=== PATIENT | female | born 1955 | race Caucasian/White ===

== ENCOUNTER 2024-09-18 22:43 | Emergency (ER) | payer MEDICARE, SELFPAY ==
[2024-09-18 22:45] VITALS: BP 159/83; PULSE 76; RESP 16; TEMP 37.1; O2SAT 95; BMI 31.9
[2024-09-18 22:54] VITALS: PULSE 69; RESP 18; O2SAT 97
--- NOTE | 2024-09-18 22:58 | EKG12_ITS ---
Test Reason : DYSRHYTHMIA Blood Pressure : */* mmHG Vent. Rate : 70 BPM Atrial Rate : 70 BPM P-R Int : 168 ms QRS Dur : 86 ms QT Int : 386 ms P-R-T Axes : 53 33 35 degrees QTcB Int : 416 ms Normal sinus rhythm Normal ECG Confirmed by OMAIRA KENNEDY, MIREILLE ([id number]), fashion editor EBONY ALVAREZ ([id number]) on 09/23/2024 6:54:53 AM Referred By: TB Confirmed By: MIREILLE CASTANO MD
--- NOTE | 2024-09-18 22:58 | EX.ED.DYSGE1 ---
HPI History of Present Illness Chief Complaint: Chest Pain Narrative Narrative: Patient is a 69-year-old female with past medical history of hypertension, GERD, CVA on 325 of aspirin, bipolar 1 disorder who presented to the emergency department chief complaint chest pain. Patient states that her chest pain has been going on for approximately 3 hours now and states that is completely resolved at this point in time by the time she arrived in the emergency department. Patient states that this all started while typing earlier this evening. Patient notes that the pain was in the left side of her chest radiated to her shoulder blades. Patient did note that she recently traveled to [place] as well and she drove however she states that she took multiple breaks. [facility] Medical History Fractures Elevated liver enzymes Elevated cholesterol Posterior vitreous detachment of right eye Carpal tunnel syndrome ADHD GERD (gastroesophageal reflux disease) HTN (hypertension) TIA (transient ischemic attack) CVA (cerebral vascular accident) Insomnia Bipolar 1 disorder Home Medications ?Medication ?Instructions ?Recorded ?Last Taken ?Type amlodipine 2.5 mg tablet 2.5 mg PO QDAY 01/28/24 Unknown History aspirin 325 mg tablet 325 mg PO QDAY 01/28/24 Unknown History atenolol 25 mg tablet 25 mg PO QDAY 01/28/24 Unknown History docusate sodium 100 mg capsule 100 mg PO QDAY 01/28/24 Unknown History (Colace) meloxicam 7.5 mg tablet 7.5 mg PO QDAY 01/28/24 Unknown History pantoprazole 40 mg tablet,delayed 40 mg PO QDAY 01/28/24 Unknown History release alprazolam 2 mg tablet 2 mg PO QDAY 90 days #90 tabs 06/26/24 Unknown Rx bupropion HCl 100 mg tablet,12 hr 100 mg PO BID 90 days #180 ea 06/26/24 Unknown Rx sustained-release lamotrigine 150 mg tablet 300 mg (2 x 150 mg) PO QHS 90 days 06/26/24 Unknown Rx #180 tabs thioridazine 25 mg tablet 25 mg PO QHS #90 tabs 06/26/24 Unknown Rx Allergy/AdvReac Type Severity Reaction Status Date / Time Iodinated Contrast Media Allergy Severe Swelling Verified 09/18/24 22:44 (IVP dye) Family History Other CAD (coronary artery disease) COPD (chronic obstructive pulmonary disease) Cancer Diabetes Heart disease Kidney disease Thyroid disorder Surgical History History of cholecystectomy History of appendectomy History of tonsillectomy Social History Smoking Status: Former smoker alcohol intake: current alcohol intake frequency: holidays/special occasions only substance use type: does not use ROS ROS ED ROS Narrative Constitutional: Denies headache, fevers or chills Eyes: Denies change of double vision blurry vision Cardiovascular: Complains of chest pain as noted above denies palpitations Respiratory: Denies coughing wheezing shortness of breath Abdomen: Denies abdominal pain nausea vomit diarrhea : Denies urinary symptoms Neurological: Denies numbness, weakness, tingling Musculoskeletal: Complaint of back pain as noted above states that is since resolved Skin: Denies any rashes or lesions EXAM Physical Exam Narrative Exam Narrative: General: Patient lying in bed rest comfortably did not appear to be in acute distress Head: Atraumatic, normocephalic Eyes: PERRL bilaterally, EOMI by, no conjunctival injection noted Neck: Soft, supple, trachea midline Cardiovascular: Regular rate and rhythm no murmurs gallops rubs noted Respiratory: Clear to auscultation bilaterally Abdomen: Soft, nondistended, nontender to palpation Extremities: Radial pulses +2/4 in bilateral extremities, +5/5 strength noted in the bilateral upper and lower extremities Neurological: Patient following commands knew that she was at [facility] the year is 2024 Skin: Warm, dry, intact no rashes or lesions noted Const Vital Signs: 09/18/24 22:45 09/18/24 22:54 09/18/24 22:59 Temperature 98.7 F Temperature Source Oral Pulse Rate 76 69 Respiratory Rate 16 18 Blood Pressure 159/83 H Blood Pressure Mean 108 Pulse Ox 95 97 Oxygen Delivery Method Room Air Room Air 09/18/24 23:00 09/18/24 23:00 09/18/24 23:15 Temperature Temperature Source Pulse Rate 70 Respiratory Rate 17 Blood Pressure 155/78 H 155/78 H 169/93 H Blood Pressure Mean 100 100 116 Pulse Ox 96 98 Oxygen Delivery Method 09/18/24 23:30 09/18/24 23:45 09/19/24 00:00 Temperature Temperature Source Pulse Rate 64 66 67 Respiratory Rate 15 16 24 H Blood Pressure Blood Pressure Mean Pulse Ox 98 99 96 Oxygen Delivery Method 09/19/24 01:00 09/19/24 02:00 Temperature Temperature Source Pulse Rate 54 L 61 Respiratory Rate 22 H 16 Blood Pressure 121/66 H 131/67 H Blood Pressure Mean 84 88 Pulse Ox 96 96 Oxygen Delivery Method Room Air Room Air MDM MDM MDM Narrative Medical decision making narrative: Patient is a 69-year-old female who presented to the emergency department with chief complaint of chest pain. On the differential diagnose includes but not limited to ACS, pneumonia, pneumothorax, PE however have low suspicion for this given normal heart rate, no shortness of breath and she took several breaks during her travels, dissection. Once workup is obtained reviewed she will be reevaluated. Patient already takes 325 mg aspirin daily. Patient CBC was reviewed showed no evidence leukocytosis white blood count normal 7.7, he was 12.8, platelet count noted to be 355. Patient sodium normal 140, potassium normal 4, creatinine was 1.07. Patient troponin was 6 with a delta troponin obtained at 7. Patient's EKG was reviewed which showed sinus rhythm with a rate of 70 bpm. Showed a left lower lobe retrocardiac opacity not entirely excluded however that she does not have any respiratory symptoms associated with this therefore I have low suspicion for pneumonia or any other upper respiratory type of etiology at this point in time. At this point patient is feeling much better and states I do not even know why I am here. She states that she would like to go home at this point time. She is advised to keep blood pressure log and take that to her schedule appointment that is coming up in the near future she states. She should return with worsening symptoms or concerns. She is agreeable to plan all question concerns answered she is discharged home in stable condition. Lab Data Labs: Laboratory Results - last 24 hr 09/18/24 09/19/24 22:55 01:15 WBC 7.7 RBC 4.08 L Hgb 12.8 Hct 36.8 L MCV 90.2 MCH 31.4 MCHC 34.8 RDW Std Deviation 41.1 RDW Coeff of Shannon 12.4 Plt Count 355 MPV 8.0 Immature Gran % (Auto) 0.300 Neut % (Auto) 51.6 Lymph % (Auto) 34.9 Irwin % (Auto) 8.9 Eos % (Auto) 3.4 Baso % (Auto) 0.9 Absolute Neuts (auto) 4.0 Absolute Lymphs (auto) 2.70 Nucleated RBC % 0 Sodium 140 Potassium 4.0 Chloride 102 Carbon Dioxide 25.2 Anion Gap 12 BUN 14 Creatinine 1.07 Estim Creat Clear Calc 52.92 Est GFR (MDRD) Non-Af 57 L BUN/Creatinine Ratio 12.6 Glucose 93 Calcium 9.6 Troponin T High Sens 6 Troponin T Hi Sens 2 Hr 7 Radiography Diagnostic Testing: Clinical Impression(s) from Imaging Studies Chest X-Ray 09/18/24 23:03 IMPRESSION: Left lower lobe/retrocardiac opacity not entirely excluded. Reading Location: [facility] Discharge Plan Triage Chief Complaint: Chest Pain ED Provider: Tristen Boyce Dx/Rx/DC Orders Clinical Impression: Chest pain Prescriptions: No Action amlodipine 2.5 mg tablet 2.5 mg PO QDAY aspirin 325 mg tablet 325 mg PO QDAY atenolol 25 mg tablet 25 mg PO QDAY docusate sodium [Colace] 100 mg capsule 100 mg PO QDAY meloxicam 7.5 mg tablet 7.5 mg PO QDAY pantoprazole 40 mg tablet,delayed release (DR/EC) 40 mg PO QDAY bupropion HCl 100 mg tablet sustained-release 12 hr 100 mg PO BID 90 Days Qty: 180 1RF lamotrigine 150 mg tablet 300 mg PO QHS 90 Days Qty: 180 1RF thioridazine 25 mg tablet 25 mg PO QHS Qty: 90 1RF alprazolam 2 mg tablet 2 mg PO QDAY 90 Days Qty: 90 0RF Primary Care Provider: SERJIO WHITE Referrals: Care Physician,No Primary [Non-Staff] - Activity Restrictions/Additional Instructions: Follow-up with your doctor in the outpatient setting. Keep a blood pressure log as we discussed here by randomly taking your blood pressure 2-3 times a day write down what the blood pressure was and what time you took it. Take medications as prescribed. Your blood work did not show any acute findings. Return with worsening symptoms or other concerns Print Language: [place] Disposition Disposition: Home, Self Care
[2024-09-18 23:00] VITALS: BP 155/78; PULSE 70; RESP 17; O2SAT 96
--- NOTE | 2024-09-18 23:03 | RAD_ITS ---
PROCEDURE: CHEST PA AND LATERAL 09/18/2024 REASON FOR EXAM: CHEST PAIN TECHNIQUE: Frontal and lateral views of the chest. COMPARISON: None FINDINGS: Left lower lobe/retrocardiac opacity not entirely excluded. Bibasilar subsegmental atelectasis. No pleural effusion or pneumothorax. No acute fractures. Cardiac silhouette is within normal limits. RAD/Chest PA and Lateral IMPRESSION: Left lower lobe/retrocardiac opacity not entirely excluded. Reading Location: [id number]
[2024-09-18 23:10] LABS: Basophil# 0.07 X10^3/uL; Basophil% 0.9 % (0-1); Eosinophil# 0.26 X10^3/uL; Eosinophils% 3.4 % (0-5); Hematocrit 36.8 % (37-47); Hemoglobin 12.8 g/dL (12.0-15.0); Lymphocyte % 34.9 % (19-41); Mean Corp Hgb Conc 34.8 g/dL (32-36); Mean Corpuscular Hgb 31.4 pg (27.0-32.0); Mean Corpuscular Volume 90.2 fL (81-99); Monocyte# 0.69 X10^3/uL; Monocyte% 8.9 % (0-10); NRBC Flagged by Analyzer 0 % (0-5); Neutrophil % 51.6 % (47-70); Platelet Count 355 K/mm3 (150-450); RBC Distribution Width CV 12.4 % (11.6-14.6); RBC Distribution Width SD 41.1 fl (35.1-43.9); Red Blood Count 4.08 M/mm3 (4.2-5.4); White Blood Count 7.7 K/mm3 (4.4-11.0)
--- NOTE | 2024-09-18 23:11 | PCA ---
no old ekg
[2024-09-18 23:15] VITALS: BP 169/93; O2SAT 98
[2024-09-18 23:30] VITALS: PULSE 64; RESP 15; O2SAT 98
[2024-09-18 23:43] LABS: Anion Gap 12 (5-15); BUN 14 mg/dL (4-19); BUN/Creat Ratio 12.6 RATIO (10-20); Calcium,Total 9.6 mg/dL (7.6-11.0); Carbon Dioxide 25.2 mmol/L (21.0-32.0); Chloride 102 mmol/L (98-108); Creatinine, Serum 1.07 mg/dL (0.70-1.20); EST Glomerular Filtration Rate 57 (>60); Estimated Creatinine Clearance 52.92 ml/min (50-250); Glucose 93 mg/dL (70-99); Sodium Level 140 mmol/L (133-145); Troponin T High Sensitivity 6 ng/L (<=14)
[2024-09-18 23:45] VITALS: PULSE 66; RESP 16; O2SAT 99
[2024-09-19] VITALS: PULSE 67; RESP 24; O2SAT 96
[2024-09-19 01:00] VITALS: BP 121/66; PULSE 54; RESP 22; O2SAT 96
[2024-09-19 01:52] LABS: Troponin T High Sens 2 HR 7 ng/L (<=14)
[2024-09-19 02:00] VITALS: BP 131/67; PULSE 61; RESP 16; O2SAT 96
[2024-09-19 02:23] VITALS: BP 131/67; PULSE 60; RESP 18; TEMP 36.7; O2SAT 97
== END 2024-09-19 02:24 | disposition home or self-care (01) ==
PROVIDERS: Emergency Provider Emergency Medicine; PCP Nurse Practitioner; Visit Provider Emergency Medicine
DX: R07.9 Chest pain, unspecified (principal); F31.9 Bipolar disorder, unspecified; E78.00 Pure hypercholesterolemia, unspecified; Z87.891 Personal history of nicotine dependence; I10 Essential (primary) hypertension; Z86.73 Personal history of transient ischemic attack (TIA), and cerebral infarction without residual deficits; Z79.82 Long term (current) use of aspirin; K21.9 Gastro-esophageal reflux disease without esophagitis; Z79.899 Other long term (current) drug therapy; Z90.49 Acquired absence of other specified parts of digestive tract
CPT/HCPCS: 71046; 80048; 84484; 85025; 93005; 99285; A4216